=== PATIENT | male | born 1940 | race Caucasian/White ===

== ENCOUNTER 2016-12-29 07:25 | Day surgery (SDC) | payer MEDICARE ==
[~2016-12-29] VITALS: Ht 172.7 cm; Wt 68.0 kg
[~2016-12-29 07:25] MED LIST: NAPR500T3 PO; OMEP40CA2 PO
[2016-12-29] MEDS ORDERED: NS 1,000 ML IV ONE (07:30)
[2016-12-29] MEDS ORDERED: PROPOFOL 500 MG/50 ML VIAL As Ordered ONE (09:14)
[2016-12-29] MEDS ORDERED: LIDOCAINE 2% INJ 100 MG/5 ML SDV (FOR ANES.) As Ordered ONE (09:14)
--- NOTE | 2016-12-29 09:17 | ROOR ---
Patient Name: Demarcus Watts Procedure Date: 12/29/2016 9:01 AM Date of : 1940 Age: 76 Room: [facility], [facility]IN [facility] Gender: Male Note Status: Finalized Procedure: Upper GI endoscopy + Balloon Dilatation Indications: Dysphagia Providers: Robin Womack MD Referring MD: Carrie TOTH DO Requesting Provider: Medicines: Monitored Anesthesia Care Complications: No immediate complications. Procedure: Pre-Anesthesia Assessment: - The heart rate, respiratory rate, oxygen saturations, blood pressure, adequacy of pulmonary ventilation, and response to care were monitored throughout the procedure. The Endoscope was introduced through the mouth, and advanced to the second part of duodenum. The upper GI endoscopy was accomplished without difficulty. The patient tolerated the procedure well. Findings: A partial esophagectomy anastomosis was found in the proximal esophagus. One benign-appearing, intrinsic stenosis was found 25 cm from the incisors. This stenosis was severe (stenosis; an endoscope cannot pass) and. The stenosis was traversed after dilation. A TTS dilator was passed through the scope. Dilation with a 10-11-12 mm balloon and a 12-13.5-15 mm balloon dilator was performed. The dilation site was examined and showed moderate improvement in luminal narrowing. No other significant abnormalities were identified in a careful examination of the stomach. The exam of the duodenum was otherwise normal. Impression: - A partial esophagectomy anastomosis was found. - Benign-appearing esophageal stenosis. Dilated. - No specimens collected. - The examination was otherwise normal. Recommendation: - Patient has a contact number available for emergencies. The signs and symptoms of potential delayed complications were discussed with the patient. Return to normal activities tomorrow. Written discharge instructions were provided to the patient. - Resume previous diet. - Discharge patient to home. - Follow an antireflux regimen. - Continue present medications. - Repeat upper endoscopy in 2 months for retreatment. - Return to referring physician. - The findings and recommendations were discussed with the patient's family. Robin Womack MD Robin Womack MD 12/29/2016 9:17:01 AM This report has been signed electronically. Number of Addenda: 0 Note Initiated On: 12/29/2016 9:01 AM Estimated Blood Loss: Estimated blood loss: none.
--- NOTE | 2016-12-29 09:30 | ROOR ---
Patient Name: Demarcus Watts Procedure Date: 12/29/2016 9:02 AM Date of : 1940 Age: 76 [facility]: [facility] Gender: Male Note Status: Finalized Procedure: Colonoscopy to Anastomosis Indications: High risk colon cancer surveillance: Personal history of colon cancer Providers: Robin Womack MD Referring MD: Carrie TOHT DO Requesting Provider: Medicines: Monitored Anesthesia Care Complications: No immediate complications. Procedure: Pre-Anesthesia Assessment: - The heart rate, respiratory rate, oxygen saturations, blood pressure, adequacy of pulmonary ventilation, and response to care were monitored throughout the procedure. The Colonoscope was introduced through the anus and advanced to the hepatic flexure to examine an anastomosis. This was the intended extent. The colonoscopy was performed without difficulty. The patient tolerated the procedure well. The quality of the bowel preparation was good. Findings: The perianal and digital rectal examinations were normal. Non-bleeding internal hemorrhoids were found during retroflexion. The hemorrhoids were small and Grade I (internal hemorrhoids that do not prolapse). Scattered small-mouthed diverticula were found in the recto-sigmoid colon, sigmoid colon and descending colon. There was evidence of a prior end-to-side colo-colonic anastomosis at the hepatic flexure. This was patent and was characterized by healthy appearing mucosa. The exam was otherwise without abnormality. Impression: - Non-bleeding internal hemorrhoids. - Diverticulosis in the recto-sigmoid colon, in the sigmoid colon and in the descending colon. - Patent end-to-side colo-colonic anastomosis, characterized by healthy appearing mucosa. - The examination was otherwise normal. - No specimens collected. - The examination was otherwise normal. Recommendation: - Patient has a contact number available for emergencies. The signs and symptoms of potential delayed complications were discussed with the patient. Return to normal activities tomorrow. Written discharge instructions were provided to the patient. - Discharge patient to home. - Continue present medications. - Repeat colonoscopy for symptoms only. - Return to referring physician. - The findings and recommendations were discussed with the patient's family. Robin Womack MD Robin Womack MD 12/29/2016 9:30:26 AM This report has been signed electronically. Number of Addenda: 0 Note Initiated On: 12/29/2016 9:02 AM Estimated Blood Loss: Estimated blood loss: none.
[2016-12-29 09:55] VITALS: BP 131/71
== END 2016-12-29 10:10 | disposition home or self-care (01) ==
LOC: M OPP 07:25
PROVIDERS: ATTEND Internal Medicine Gastroenterology
DX: Z12.11 Encounter for screening for malignant neoplasm of colon (principal); Z85.038 Personal history of other malignant neoplasm of large intestine; K64.0 First degree hemorrhoids; K57.30 Diverticulosis of large intestine without perforation or abscess without bleeding; Z98.0 Intestinal bypass and anastomosis status; R13.10 Dysphagia, unspecified; K22.2 Esophageal obstruction; Z98.890 Other specified postprocedural states; Z85.01 Personal history of malignant neoplasm of esophagus; Z92.21 Personal history of antineoplastic chemotherapy; Z92.3 Personal history of irradiation; I25.10 Atherosclerotic heart disease of native coronary artery without angina pectoris; E78.5 Hyperlipidemia, unspecified; I10 Essential (primary) hypertension; M19.90 Unspecified osteoarthritis, unspecified site; K85.90 Acute pancreatitis without necrosis or infection, unspecified; K82.9 Disease of gallbladder, unspecified; Z87.891 Personal history of nicotine dependence; Z79.899 Other long term (current) drug therapy
CPT/HCPCS: 43249; G0105

== ENCOUNTER → 2017-08-03 | Outpatient (CLI) | payer MEDICARE ==
[2017-08-03 14:40] LABS: BASO % 0.8 % (0.0-1.0); EOS # 0.3 10^3/uL (0.0-0.50); HEMATOCRIT 45.4 % (42.0-52.0); HEMOGLOBIN 15.8 g/dl (13.5-17.5); IMMATURE GRANULOCYTE % 0.4 % (0-3.0); LYMPH # 0.8 10^3/uL (1.5-4.5); LYMPH % 16.6 % (24.0-44.0); MEAN CORPUSCULAR HEMOGLOBIN 32.4 pg (27.0-33.0); MEAN CORPUSCULAR HGB CONC 34.8 g/dl (32.0-36.5); MONO # 0.8 10^3/uL (0.0-0.8); MONO % 15.2 % (0.0-5.0); PLATELET COUNT, AUTOMATED 210 10^3/uL (150-450); RED BLOOD COUNT 4.88 10^6/uL (4.30-6.10); RED CELL DISTRIBUTION WIDTH 12.3 % (11.5-14.5)
[2017-08-03 15:36] LABS: C REACTIVE PROTEIN QUANTITATIV < 0.30 MG/DL (0.00-0.30)
[2017-08-03 16:27] LABS: ERYTHROCYTE SEDIMENTATION RATE 5 mm/hr (0-20)
[2017-08-05 00:07] LABS: Lyme Disease IgG/IgM Antibodie <0.91 ISR (0.00-0.90); Lyme Disease IgM Ab Quantitati <0.80 index (0.00-0.79)
== END ==
LOC: M SMT 10:59
DX: M70.21 Olecranon bursitis, right elbow (principal)
CPT/HCPCS: 86140

== ENCOUNTER 2018-07-08 08:13 | Emergency (ER) | payer MEDICARE ==
[~2018-07-08] VITALS: Ht 170.2 cm; Wt 68.6 kg
[~2018-07-08 08:13] MED LIST changes: +NAPR-885 PO; -NAPR500T3 PO; +PANT40TA3 PO
[2018-07-08 09:44] LABS: BASO % 0.3 % (0.0-1.0); EOS # 0.1 10^3/uL (0.0-0.50); HEMATOCRIT 46.1 % (42.0-52.0); HEMOGLOBIN 15.8 g/dl (13.5-17.5); LYMPH # 0.6 10^3/uL (1.5-4.5); LYMPH % 6.6 % (24.0-44.0); MEAN CORPUSCULAR HGB CONC 34.3 g/dl (32.0-36.5); MEAN CORPUSCULAR VOLUME 93.3 fl (80.0-96.0); MONO # 1.1 10^3/uL (0.0-0.8); MONO % 12.3 % (0.0-5.0); NEUTROPHILS % 79.5 % (36.0-66.0); PLATELET COUNT, AUTOMATED 158 10^3/uL (150-450); RED BLOOD COUNT 4.94 10^6/uL (4.30-6.10); WHITE BLOOD COUNT 8.8 10^3/uL (4.0-10.0)
[2018-07-08 10:12] LABS: ALBUMIN 3.6 GM/DL (3.2-5.2); ALT/SGPT 24 U/L (12-78); BILIRUBIN,DIRECT 0.4 MG/DL (0.0-0.2); BILIRUBIN,TOTAL 1.5 MG/DL (0.2-1.0); BLOOD UREA NITROGEN 19 MG/DL (7-18); CALCIUM LEVEL 8.3 MG/DL (8.8-10.2); CARBON DIOXIDE LEVEL 32 MEQ/L (21-32); CHLORIDE LEVEL 100 MEQ/L (98-107); CREATININE FOR GFR 1.05 MG/DL (0.70-1.30); GLOMERULAR FILTRATION RATE > 60.0 (>42); GLUCOSE, FASTING 93 MG/DL (70-100); LIPASE 130 U/L (73-393); POTASSIUM SERUM 4.5 MEQ/L (3.5-5.1); SODIUM LEVEL 138 MEQ/L (136-145); TOTAL PROTEIN 6.7 GM/DL (6.4-8.2)
--- NOTE | 2018-07-08 10:59 | REP ---
CT ABDOMEN AND PELVIS WITHOUT IV CONTRAST: HISTORY: Abdomen pain. History of hiatal hernia repair times four. Lower abdominal pain. The patient reports previous cholecystectomy, appendectomy, and colon resection. Previous history of esophageal and colon malignancy. Comparison CT study May 26, 2012. CT FINDINGS: The patient appears to be status post esophagectomy and gastric pull-through procedure. There are a few punctate calcifications in the pancreatic head. No pancreatic mass lesion is seen. Clips are noted the gallbladder fossa. No focal hepatic lesion is seen. There is a granulomatous calcification centrally in the spleen. No adrenal lesion is seen on either side. The kidneys are morphologically intact. There is a tiny intrarenal calculus at mid pole level in the left kidney 3 mm in diameter. No hydronephrosis is seen. There is extensive diverticulosis in the sigmoid colon. Mild mural thickening is seen but no inflammatory changes are noted to suggest acute diverticulitis. Diverticulosis is seen extending up the descending colon to the splenic flexure. There is a right colonic anastomosis consistent with previous right colectomy. The small bowel loops are unremarkable. Prostate is mildly prominent. Seminal vesicles and urinary bladder are unremarkable. There is moderate vascular calcification. No abdominal wall defect is seen. There appears to be a ventral hernia repair. Bone window settings show no bony destructive lesion. IMPRESSION: No acute intra-abdominal abnormality. Extensive sigmoid colon diverticulosis without definite CT evidence of diverticulitis. Status post partial right colectomy, cholecystectomy, esophagectomy and gastric pull-through procedure. There is a nonobstructive 3 mm calculus in the left kidney. No hydronephrosis is seen. Electronically Signed by Jarod Pulido MD 07/08/2018 02:37 P
[2018-07-08 12:34] VITALS: BP 119/65
[2018-07-08] MEDS ORDERED: KEFL500C17 PO (12:43)
== END 2018-07-08 12:52 | disposition home or self-care (01) ==
LOC: M ED 08:13
DX: N39.0 Urinary tract infection, site not specified (principal); R31.0 Gross hematuria; E86.0 Dehydration; K57.30 Diverticulosis of large intestine without perforation or abscess without bleeding; N20.0 Calculus of kidney; Z85.038 Personal history of other malignant neoplasm of large intestine; Z90.49 Acquired absence of other specified parts of digestive tract; Z85.01 Personal history of malignant neoplasm of esophagus; K21.9 Gastro-esophageal reflux disease without esophagitis; Z87.891 Personal history of nicotine dependence; Z91.041 Radiographic dye allergy status; Z79.899 Other long term (current) drug therapy

== ENCOUNTER 2018-08-30 09:05 | Outpatient (RCR) | payer MEDICARE ==
--- NOTE | 2018-08-19 09:39 | CARECAPL ---
Assessment Account #s: Initial Assessment General Diagnoses: Stent Date of event: Aug 05, 2018 Physician: Willam Schmidt Allergies: Coded Allergies: Contrast Media (Verified Allergy, Mild, unknown 1995, 07/08/18) Date Entered Program: Aug 19, 2018 Risk strat for cardiac event: High Exercise Assessment: Initial Assessment Stress Test: Max Heart rate (138), MET Level (13) Exercise Prescription Plan educate and increase endurance and flexibility through monitored exercise. Modalities initiated: Treadmill (will add 2.0 for 10 minutes), Nustep (will add level 2 for 10 minutes), Arm Aerometer (will add resistance of 1.0 for 8 minutes), Dumbells (will add 1 lbs 2 sets of 10 reps), Recumbent Bike (will add resistance of 2 for 8 minutes) Frequency: 2-3 Duration (Minutes) 30-60 minutes total exercise a day. 15-20 work intervals in minutes. prn rest intervals in minutes. Functional Capacity Goal Sustained Metabolic Equivalent of a task (MET) goal of 3.5-4.5 for 15-20 minutes. Intensity: 3-Moderate Progression (METS) Increase by: 0.5 METS every: 3-5 sessions Angina with ex: No Target Heart Rate rest + 35-40 per beta gege therapy Resistance Training: Yes Weight (pounds): 1 Reps: 8-12 Hypertension: No Hypertension controlled with: Medication (atenolol and lisinopril) Medications Scheduled Aspirin (Aspirin), 81 MG PO DAILY, (Reported) Atenolol (Atenolol), 12.5 MG PO DAILY, (Reported) Atorvastatin Calcium (Atorvastatin Calcium), 40 MG PO QPM, (Reported) Clopidogrel Bisulfate (Clopidogrel), 75 MG PO DAILY, (Reported) Lisinopril (Lisinopril), 2.5 MG PO DAILY, (Reported) Pantoprazole Sodium (Pantoprazole Sodium), 40 MG PO DAILY, (Reported) Discontinued Medications Cephalexin (Keflex), 500 MG PO QID Discontinued Reason: Pt states not taking Naproxen (Naproxen), 500 MG PO DAILYPRN PRN for PAIN, (Reported) Discontinued Reason: Pt states not taking Target Goals Individual exercise Rx (1) BP 140/90 or 130/80 if DM or CKD (1) Aerobic active 30+min 5 days per week (1) Nutrition Date: Aug 19, 2018 Assessment: Initial Assessment Lipids Total Cholesterol (195), High Density Lipids (HDL) (88), Low Density Lipids (L DL) (13), Triglycerides (63), Lipid med/supplement (atorvastatin 40 mg) Lipid- med/supplement atorvastatin Diabetes Diabetes: No Monitor Blood Sugar at home: No Weight Management Weight (lbs): 152.8 Height (inches): 68 Waist Circumference (Inches): 35 BMI: 23.11 Special Diet: mediteranean diet Alcohol: weekly (3 times) Alcohol Type: wine Alcohol Amount: 1-2 Diet Access Tool: Rate your plate Score: 56 Referral to Diabetes education: No Referral to lipid clinic: No Referral to weight mangement p: No Target goal LDL-C<100 if triglycerides are >200 Non-HDL-C should be <130 (1) LDL-C<70 for high risk patients (4) HbA1c<7% (1) BMI<25 Waist cir<40in M/<35in F (1) Education Date: Aug 19, 2018 Assessment: Initial Assessment Knowledge Test Score: 6 Family Support: Yes Tobacco use: No Quit: never smoked Target Goals Complete cessation of tobacco use (1). Psychosocial Date: Aug 19, 2018 Assessment: Initial Assessment Psych Test (Initial/Discharge) Tool Used: CESD Score: 5 Intervention Physician Consult: No Physician Referral: No Psychotropic medication none Target Goal Assess presence or absence of depression using a valid screening tool (1). Maximize coping skills (2). Positive support system (2). Patient/Program Goal Preventative Medication: Yes Aspirin, Yes Clopidogrel, Yes Beta blockade, Yes BREANN Inhibitor, Yes Statin/OTR lipid Lowering Fall Risk Assess: Yes (no fall risk) Provider Assessment Provider Assessment: Proceed with rehab Gely Nuñez RN Aug 19, 2018 09:39
[~2018-08-30 09:05] MED LIST changes: +ASPI81CH33 PO; +ATEN25TA PO; +ATOR40TA75 PO; +CLOP75TA2 PO; +KEFL500C17 PO; +LISI-1046 PO
== END 2018-09-08 ==
LOC: M CR 09:05
PROVIDERS: ATTEND Internal Medicine Cardiovascular Disease
DX: Z98.61 Coronary angioplasty status (principal)

== ENCOUNTER → 2019-11-22 | Outpatient (CLI) | payer MEDICARE ==
[~2019-11-22] MED LIST changes: -LISI-1046 PO; +LISI2.5T2 PO; -OMEP40CA2 PO; +OMEP40CA97 PO; +PANT40TA29 PO; -PANT40TA3 PO
--- NOTE | 2019-11-24 16:06 | REP ---
LOW DOSE LUNG SCREENING CT: 11/22/19. CLINICAL: Personal history of nicotine dependence. TECHNIQUE: Axial non-contrast images from the thoracic inlet to the upper abdomen using low dose lung screening technique. COMPARISON: 05/26/12. FINDINGS: The patient appears to be status post esophagectomy and gastric pull-through procedure. The lung avalos demonstrate diffuse chronic appearing interstitial changes and scattered chronic changes which are relatively similar to 2013 examination. However, there is a new 8mm density in the left apex (image 20) as well as subtle smaller new areas of presumed chronic change although smaller nodules and atelectasis in the right lower lung zone cannot be excluded. No effusion. No pneumothorax. Mediastinum demonstrates atherosclerotic changes to the thoracic aorta and coronary arteries with suggestions for ascending thoracic aortic aneurysm measuring 4.7cm diameter. IMPRESSION: 1. Evidence for gastric pull-through procedure and diffuse chronic interstitial appearing changes. 2. 4.7cm ascending thoracic aortic aneurysm warrants follow-up. 3. Lung RADS category 3S. 8mm nodule in the left apex. 6 month follow up examination is recommended. MTDD
== END ==
LOC: M RAD 07:06
PROVIDERS: ATTEND Physician Assistant
DX: Z87.891 Personal history of nicotine dependence (principal); R91.8 Other nonspecific abnormal finding of lung field

== ENCOUNTER → 2020-05-30 | Outpatient (CLI) | payer MEDICARE | LOC: M LABSMTC 09:56 | PROVIDERS: ATTEND Internal Medicine Cardiovascular Disease | DX: Z20.822 Contact with and (suspected) exposure to COVID-19 (principal) ==

== ENCOUNTER → 2020-08-06 | Outpatient (CLI) | payer MEDICARE ==
[~2020-08-06] MED LIST changes: +OMEP40CA4 PO; -OMEP40CA97 PO
--- NOTE | 2020-08-08 09:19 | REP ---
INDICATION: CERVICALGIA. COMPARISON: None. TECHNIQUE: AP, lateral, flexion/extension, bilateral oblique and open mouth views of the cervical spine FINDINGS: Advanced multilevel degenerative changes include osteophytosis, endplate sclerosis, disc space narrowing and facet hypertrophy. Lateral views demonstrate partial fusion at the C5-6 vertebral body level. No acute fracture/compression injury or subluxation. Oblique views demonstrate foraminal narrowing bilaterally. Open mouth view demonstrates normal C1-C2 articulation and odontoid process. IMPRESSION: Advanced multilevel degenerative spondylosis. <Electronically signed by Zi Owusu > 08/06/20 [id number]
== END ==
LOC: M RAD 14:12
PROVIDERS: ATTEND Family Medicine
DX: M54.2 Cervicalgia (principal)

== ENCOUNTER → 2021-09-25 | Outpatient (CLI) | payer MEDICARE ==
[~2021-09-25] MED LIST changes: -LISI2.5T2 PO; +LISI2.5T9 PO
== END ==
LOC: M PLAIMG 10:35
PROVIDERS: ATTEND Family Medicine
DX: M46.1 Sacroiliitis, not elsewhere classified (principal); M25.861 Other specified joint disorders, right knee; M25.70 Osteophyte, unspecified joint; M16.0 Bilateral primary osteoarthritis of hip; M51.36 Other intervertebral disc degeneration, lumbar region

== ENCOUNTER → 2021-10-11 | Outpatient (CLI) | payer MEDICARE | LOC: M PLARAD 14:19 | PROVIDERS: ATTEND Family Medicine | DX: M51.36 Other intervertebral disc degeneration, lumbar region (principal); M46.1 Sacroiliitis, not elsewhere classified; M48.061 Spinal stenosis, lumbar region without neurogenic claudication; M25.78 Osteophyte, vertebrae ==

== ENCOUNTER → 2021-11-26 | Outpatient (CLI) | payer MEDICARE ==
[2021-11-26 11:03] LABS: EOS # 0.3 10^3/uL (0.0-0.5); HEMATOCRIT 42.9 % (42.0-52.0); LYMPH # 0.9 10^3/uL (1.5-5.0); MEAN CORPUSCULAR HEMOGLOBIN 24.8 pg (27.0-33.0); MEAN CORPUSCULAR HGB CONC 30.3 g/dl (32.0-36.5); MEAN CORPUSCULAR VOLUME 81.7 fl (80.0-96.0); MONO # 0.7 10^3/uL (0.0-0.8); MONO % 17.6 % (2.0-8.0); NEUTROPHILS # 2.2 10^3/uL (1.5-8.5); NEUTROPHILS % 53.2 % (36.0-66.0); PLATELET COUNT, AUTOMATED 197 10^3/uL (150-450); RED BLOOD COUNT 5.25 10^6/uL (4.30-6.10); WHITE BLOOD COUNT 4.1 10^3/uL (4.0-10.0)
[2021-11-26 11:33] LABS: HEMOGLOBIN A1c 6.1 %
[2021-11-26 12:07] LABS: ALBUMIN 3.7 GM/DL (3.2-5.2); ALKALINE PHOSPHATASE 100 U/L (45-117); ALT/SGPT 28 U/L (12-78); AST/SGOT 22 U/L (7-37); BILIRUBIN,TOTAL 0.7 MG/DL (0.2-1.0); BLOOD UREA NITROGEN 20 MG/DL (7-18); CARBON DIOXIDE LEVEL 31 MEQ/L (21-32); CHLORIDE LEVEL 104 MEQ/L (98-107); CREATININE FOR GFR 1.04 MG/DL (0.70-1.30); GLOMERULAR FILTRATION RATE > 60.0 (>42); GLUCOSE, FASTING 99 MG/DL (70-100); POTASSIUM SERUM 4.8 MEQ/L (3.5-5.1); SODIUM LEVEL 139 MEQ/L (136-145); TOTAL PROTEIN 6.9 GM/DL (6.4-8.2)
== END ==
LOC: M WUC 08:19
PROVIDERS: ATTEND Nurse Practitioner Adult Health
DX: R73.01 Impaired fasting glucose (principal)

== ENCOUNTER → 2021-11-26 | Outpatient (CLI) | payer MEDICARE ==
[2021-11-26 11:05] LABS: BASO % 0.8 % (0.0-1.0); EOS # 0.2 10^3/uL (0.0-0.5); EOS % 5.7 % (0.0-3.0); HEMATOCRIT 43.1 % (42.0-52.0); HEMOGLOBIN 12.9 g/dl (13.5-17.5); LYMPH # 0.8 10^3/uL (1.5-5.0); LYMPH % 20.3 % (24.0-44.0); MEAN CORPUSCULAR HEMOGLOBIN 24.8 pg (27.0-33.0); MEAN CORPUSCULAR HGB CONC 29.9 g/dl (32.0-36.5); MEAN CORPUSCULAR VOLUME 82.9 fl (80.0-96.0); MONO # 0.6 10^3/uL (0.0-0.8); MONO % 16.6 % (2.0-8.0); NEUTROPHILS # 2.2 10^3/uL (1.5-8.5); NEUTROPHILS % 56.3 % (36.0-66.0); PLATELET COUNT, AUTOMATED 192 10^3/uL (150-450); WHITE BLOOD COUNT 3.9 10^3/uL (4.0-10.0)
[2021-11-26 12:02] LABS: ALBUMIN 3.9 GM/DL (3.2-5.2); BLOOD UREA NITROGEN 21 MG/DL (7-18); CALCIUM LEVEL 8.9 MG/DL (8.8-10.2); CARBON DIOXIDE LEVEL 31 MEQ/L (21-32); CHLORIDE LEVEL 104 MEQ/L (98-107); CREATININE FOR GFR 1.06 MG/DL (0.70-1.30); GLOMERULAR FILTRATION RATE > 60.0 (>42); GLUCOSE, FASTING 98 MG/DL (70-100); NT-PRO BNP 221 PG/ML (<450); PHOSPHORUS LEVEL 3.4 MG/DL (2.5-4.9); POTASSIUM SERUM 4.6 MEQ/L (3.5-5.1); SODIUM LEVEL 139 MEQ/L (136-145)
== END ==
LOC: M WUC 08:16
PROVIDERS: ATTEND Internal Medicine Cardiovascular Disease
DX: I50.32 Chronic diastolic (congestive) heart failure (principal); I35.0 Nonrheumatic aortic (valve) stenosis

== ENCOUNTER → 2021-12-06 | Outpatient (CLI) | payer MEDICARE ==
[2021-12-06 13:05] LABS: BASO % 0.7 % (0.0-1.0); EOS # 0.2 10^3/uL (0.0-0.5); EOS % 3.9 % (0.0-3.0); HEMATOCRIT 42.2 % (42.0-52.0); HEMOGLOBIN 12.6 g/dl (13.5-17.5); LYMPH # 0.9 10^3/uL (1.5-5.0); LYMPH % 16.3 % (24.0-44.0); MEAN CORPUSCULAR HEMOGLOBIN 24.9 pg (27.0-33.0); MEAN CORPUSCULAR HGB CONC 29.9 g/dl (32.0-36.5); MEAN CORPUSCULAR VOLUME 83.4 fl (80.0-96.0); MONO # 0.9 10^3/uL (0.0-0.8); MONO % 15.2 % (2.0-8.0); NEUTROPHILS # 3.6 10^3/uL (1.5-8.5); NEUTROPHILS % 63.5 % (36.0-66.0); PLATELET COUNT, AUTOMATED 199 10^3/uL (150-450); RED BLOOD COUNT 5.06 10^6/uL (4.30-6.10); WHITE BLOOD COUNT 5.7 10^3/uL (4.0-10.0)
[2021-12-06 13:40] LABS: C REACTIVE PROTEIN QUANTITATIV < 0.30 MG/DL (0.00-0.30); URIC ACID 6.1 MG/DL (3.5-7.2)
[2021-12-06 13:59] LABS: ERYTHROCYTE SEDIMENTATION RATE 6 mm/hr (0-20)
== END ==
LOC: M WUC 09:08
PROVIDERS: ATTEND Nurse Practitioner Adult Health
DX: M79.662 Pain in left lower leg (principal)

== ENCOUNTER → 2021-12-10 | Outpatient (CLI) | payer MEDICARE | LOC: M WHC 14:04 | PROVIDERS: ATTEND Nurse Practitioner Adult Health | DX: M79.662 Pain in left lower leg (principal) ==

== ENCOUNTER → 2022-01-30 | Outpatient (REF) | payer MEDICARE | LOC: M LAB REF 17:46 | PROVIDERS: ATTEND Nurse Practitioner Adult Health | DX: J02.0 Streptococcal pharyngitis (principal) ==

== ENCOUNTER → 2022-05-20 | Outpatient (CLI) | payer MEDICARE ==
[2022-05-20 10:34] LABS: BASO % 0.9 % (0.0-1.0); EOS # 0.2 10^3/uL (0.0-0.5); EOS % 5.2 % (0.0-3.0); HEMATOCRIT 41.9 % (42.0-52.0); HEMOGLOBIN 12.8 g/dl (13.5-17.5); LYMPH # 0.8 10^3/uL (1.5-5.0); LYMPH % 22.5 % (24.0-44.0); MEAN CORPUSCULAR HEMOGLOBIN 25.2 pg (27.0-33.0); MEAN CORPUSCULAR HGB CONC 30.5 g/dl (32.0-36.5); MEAN CORPUSCULAR VOLUME 82.6 fl (80.0-96.0); MONO # 0.5 10^3/uL (0.0-0.8); MONO % 14.7 % (2.0-8.0); NEUTROPHILS % 56.4 % (36.0-66.0); PLATELET COUNT, AUTOMATED 175 10^3/uL (150-450); RED BLOOD COUNT 5.07 10^6/uL (4.30-6.10); WHITE BLOOD COUNT 3.5 10^3/uL (4.0-10.0)
[2022-05-20 10:51] LABS: HEMOGLOBIN A1c 5.8 % (4.0-6.0)
[2022-05-20 10:56] LABS: ALBUMIN 3.7 G/DL (3.2-5.2); ALKALINE PHOSPHATASE 74 U/L (46-116); ALT/SGPT 23 U/L (7.0-40); AST/SGOT 26 U/L (<34); BILIRUBIN,TOTAL 0.8 MG/DL (0.3-1.2); BLOOD UREA NITROGEN 19 MG/DL (9-23); CALCIUM LEVEL 8.8 MG/DL (8.3-10.6); CARBON DIOXIDE LEVEL 30 MMOL/L (20-31); CHLORIDE LEVEL 104 MMOL/L (98-107); CHOLESTEROL LEVEL 143 MG/DL (<200); CHOLESTEROL RISK RATIO 1.58 (<5); CREATININE FOR GFR 0.93 MG/DL (0.70-1.30); GLOMERULAR FILTRATION RATE > 60.0 (>42); GLUCOSE, FASTING 98 MG/DL (74-106); HDL CHOLESTEROL 90.1 MG/DL (>40); LDL CHOLESTEROL 39.9 MG/DL (<100); NON-HDL-C 52.9 MG/DL; POTASSIUM SERUM 4.5 MMOL/L (3.5-5.1); SODIUM LEVEL 138 MMOL/L (136-145); TOTAL PROTEIN 6.1 G/DL (5.7-8.2); TRIGLYCERIDES LEVEL 65 MG/DL (<150)
[2022-05-20 10:57] LABS: THYROID STIMULATING HORMONE 0.836 uIU/ML (0.55-4.78)
[2022-05-21 23:07] LABS: PSA TOTAL 2.3 ng/mL (0.0-4.0)
== END ==
LOC: M WUC 08:17
PROVIDERS: ATTEND Family Medicine
DX: I25.10 Atherosclerotic heart disease of native coronary artery without angina pectoris (principal); R73.01 Impaired fasting glucose; F52.21 Male erectile disorder; Z79.899 Other long term (current) drug therapy

== ENCOUNTER 2022-09-01 07:18 | Day surgery (SDC) | payer MEDICARE ==
[~2022-09-01] VITALS: Ht 170.2 cm; Wt 71.8 kg
[~2022-09-01 07:18] MED LIST changes: +GABA-282 PO; +NS 1,000 ML IV ONE
[2022-09-01 08:55] VITALS: BP 124/66; O2SAT 95
== END 2022-09-01 09:09 | disposition home or self-care (01) ==
LOC: M SDC 07:18
PROVIDERS: ATTEND Internal Medicine Gastroenterology
DX: R13.10 Dysphagia, unspecified (principal); R12 Heartburn; E78.5 Hyperlipidemia, unspecified; Z79.82 Long term (current) use of aspirin; Z79.02 Long term (current) use of antithrombotics/antiplatelets; Z92.21 Personal history of antineoplastic chemotherapy; Z92.3 Personal history of irradiation; Z85.09 Personal history of malignant neoplasm of other digestive organs; Z95.1 Presence of aortocoronary bypass graft; Z91.040 Latex allergy status

== ENCOUNTER 2023-06-19 10:45 | Outpatient (CLI) | payer MEDICARE ==
[~2023-06-19] VITALS: Ht 167.6 cm; Wt 65.9 kg
[2023-06-19 11:00] VITALS: BP 159/75; O2SAT 97
[2023-06-19] MEDS: FERRIC CARBOXYMALTOSE INJ 750 MG in NS 250 ML (>50kg) IV ONE (11:19)
[2023-06-19 12:30] VITALS: BP 143/82; O2SAT 99
[2023-07-13] MEDS ORDERED: AMLO2.5T3 PO (09:44)
== END 2023-06-19 12:45 | disposition home or self-care (01) ==
LOC: M INFU 10:45
PROVIDERS: ATTEND Nurse Practitioner Adult Health
DX: D50.9 Iron deficiency anemia, unspecified (principal); Z91.041 Radiographic dye allergy status
CPT/HCPCS: 93246; 96365; J1439

== ENCOUNTER → 2023-06-19 | Outpatient (CLI) | payer MEDICARE ==
[~2023-06-19] MED LIST changes: -NS 1,000 ML IV ONE
== END ==
LOC: M EKG 11:29
PROVIDERS: ATTEND Internal Medicine Cardiovascular Disease
DX: I44.0 Atrioventricular block, first degree (principal); Z86.73 Personal history of transient ischemic attack (TIA), and cerebral infarction without residual deficits

== ENCOUNTER 2023-06-29 10:01 | Outpatient (CLI) | payer MEDICARE ==
[~2023-06-29] VITALS: Ht 167.6 cm; Wt 65.9 kg
[2023-06-29] MEDS: FERRIC CARBOXYMALTOSE INJ 750 MG in NS 250 ML (>50kg) IV ONE (10:24)
[2023-06-29 11:40] VITALS: BP 157/76; O2SAT 99
== END 2023-06-29 11:40 | disposition home or self-care (01) ==
LOC: M INFU 10:01
PROVIDERS: ATTEND Nurse Practitioner Adult Health
DX: D50.9 Iron deficiency anemia, unspecified (principal); Z91.041 Radiographic dye allergy status
CPT/HCPCS: 96365; J1439

== ENCOUNTER → 2023-07-01 | Outpatient (REF) | payer MEDICARE | LOC: M LAB REF 11:02 | PROVIDERS: ATTEND Internal Medicine Cardiovascular Disease | DX: D50.0 Iron deficiency anemia secondary to blood loss (chronic) (principal); Z86.73 Personal history of transient ischemic attack (TIA), and cerebral infarction without residual deficits ==

== ENCOUNTER 2023-07-15 06:49 | Day surgery (SDC) | payer MEDICARE ==
[~2023-07-15] VITALS: Ht 171.4 cm; Wt 66.2 kg
[~2023-07-15 06:49] MED LIST changes: +AMLO2.5T3 PO
[2023-07-15] MEDS ORDERED: propofoL 200 MG/20 ML VIAL As Ordered ONE (06:57)
[2023-07-15] MEDS ORDERED: LIDOCAINE 2% 100MG/5ML SDV (FOR ANES.) As Ordered ONE (06:57)
[2023-07-15] MEDS: NS 1,000 ML IV ONE (07:33)
[2023-07-15 07:56] VITALS: TEMP 97.7
[2023-07-15 08:17] VITALS: BP 160/65; O2SAT 98
== END 2023-07-15 08:19 | disposition home or self-care (01) ==
LOC: M OPP 06:49
PROVIDERS: ATTEND Internal Medicine Gastroenterology
DX: K31.89 Other diseases of stomach and duodenum (principal); Z98.84 Bariatric surgery status; Z98.0 Intestinal bypass and anastomosis status; R93.3 Abnormal findings on diagnostic imaging of other parts of digestive tract; Z86.73 Personal history of transient ischemic attack (TIA), and cerebral infarction without residual deficits; Z85.038 Personal history of other malignant neoplasm of large intestine; Z95.0 Presence of cardiac pacemaker; Z85.01 Personal history of malignant neoplasm of esophagus; I35.9 Nonrheumatic aortic valve disorder, unspecified; Z79.02 Long term (current) use of antithrombotics/antiplatelets; Z79.82 Long term (current) use of aspirin; Z79.899 Other long term (current) drug therapy; Z91.041 Radiographic dye allergy status

== ENCOUNTER → 2023-07-25 | Outpatient (REF) | payer MEDICARE | LOC: M LAB REF 18:01 | PROVIDERS: ATTEND Physician Assistant Medical | DX: R50.9 Fever, unspecified (principal) ==

== ENCOUNTER → 2024-11-09 | Outpatient (CLI) | payer MEDICARE ==
[~2024-11-09] MED LIST changes: +GABA-1172 PO; -GABA-282 PO
== END ==
LOC: M PLAIMG 09:38
PROVIDERS: ATTEND Physician Assistant
DX: I35.0 Nonrheumatic aortic (valve) stenosis (principal)